=== PATIENT | male | born 1990 | race African-American/Black ===

== ENCOUNTER 2020-07-29 01:15 | Emergency (ER) | payer SELFPAY ==
[~2020-07-29] VITALS: Ht 175.3 cm; Wt 104.3 kg
--- NOTE | 2020-07-29 01:15 | NUR ---
PT BIB [facility], PREBOOK. TAKEN TO CHAIR C
[2020-07-29 01:19] VITALS: BP 131/74
--- NOTE | 2020-07-29 01:21 | NUR ---
PT BEING EVALUATED BY ERMD.
--- NOTE | 2020-07-29 01:30 | NUR ---
PATIENT BIB [facility] [employer]. PATIENT EXAMINED BY DR. BYRNE. PATIENT MEDICALLY CLEARED AND RELEASED IN CUSTODY IN STABLE CONDITION. ORIGINAL PRE-BOOK FORM GIVEN TO OFFICER JOHN.
[2020-07-29 01:31] VITALS: BP 131/74
--- NOTE | 2020-07-29 01:31 | NUR ---
Patient discharged with v/s stable. Written and verbal after care instructions given and explained. Patient verbalized understanding. Police with in custody. All questions addressed prior to discharge. Advised to follow up with PMD.
== END 2020-07-29 01:31 ==
LOC: MED 01:15
DX: S50.12XA Contusion of left forearm, initial encounter (principal); V89.2XXA Person injured in unspecified motor-vehicle accident, traffic, initial encounter; Y93.89 Activity, other specified; Y92.89 Other specified places as the place of occurrence of the external cause; Y99.8 Other external cause status
CPT/HCPCS: 99283

== ENCOUNTER 2020-08-07 12:43 | Emergency (ER) | payer OTHER ==
[~2020-08-07] VITALS: Ht 182.9 cm; Wt 104.3 kg
[2020-08-07 12:53] VITALS: BP 141/76
--- NOTE | 2020-08-07 12:55 | NUR ---
PT TAKEN TO CHAIR Cecille.
--- NOTE | 2020-08-07 12:57 | NUR ---
PT REQUESTING A RETURN TO WORK NOTE. PT STATES HE WAS SEEN HERE ON 07/29/2020 A PREBOOK AND STATES HE NEEDS A CLEARANCE. DENIES ANY PAIN. DENIES ANY SYMPTOMS. VSS.
[2020-08-07 14:25] VITALS: BP 112/60
--- NOTE | 2020-08-07 14:25 | NUR ---
Patient discharged with v/s stable. Written and verbal after care instructions given and explained. Patient verbalized understanding. Ambulatory with steady gait. All questions addressed prior to discharge. Advised to follow up with PMD.
== END 2020-08-07 14:25 | disposition home or self-care (01) ==
LOC: MED 12:43
DX: Z02.89 Encounter for other administrative examinations (principal)
CPT/HCPCS: 99283